=== PATIENT | female | born 1995 | race American Indian/Alaskan Native ===

== ENCOUNTER 2017-03-18 18:02 | Emergency (ER) | payer MEDICAID ==
[2017-03-18 18:49] VITALS: BP 114/51
[2017-03-18 19:23] LABS: Bacteria,Urine 1+ /HPF (Negative); Bilirubin,Urine NEG (Negative); Blood,Urine NEG (Negative); Ketones,Urine 80 mg/dL (Negative); Leukocyte Esterase,Urine TR (Negative); Mucus,Urine 3+ /HPF; Nitrite,Urine NEG (Negative); Protein,Urine <15 mg/dL mg/dL (Negative)
--- NOTE | 2017-03-18 19:50 | Emergency Department Report ---
ED Female HPI - General Chief complaint: Back Pain/Injury Stated complaint: BACK PAIN Time Seen by Provider: 03/18/17 19:39 Source: patient Mode of arrival: Ambulatory Limitations: No Limitations - History of Present Illness Initial comments: 21 YO FEMALE 15 WITH HER FIRST CHILD AND WORKS AT [employer] HAS HAD LOWER BACK PAIN SINCE OWN WEEK. SHE DENIES TRAUMA, HEMATURIA, DYSURIA,VAGINAL BLEEDING, OR ABNORMAL VAGINAL DISCHARGE. SHE HAS TAKEN TYLENOL FOR HER PAIN BUT PAIN RETURNS BECAUSE OF STANDING UP AT WORK -: Gradual Severity scale (0 -10): 4 Quality: sharp, aching Consistency: intermittent Worsens with: movement Associated Symptoms: denies other symptoms. denies: vaginal discharge, vaginal bleeding, abdominal pain, nausea/vomiting, fever/chills, dysuria, hematuria - Related Data : 1 Para: 0 A: 0 Allergies Allergy/AdvReac Type Severity Reaction Status Date / Time No Known Allergies Allergy Unverified 03/18/17 18:41 ED Review of Systems ROS: Stated complaint: PELVIC/BACK PAIN Other details as noted in HPI Constitutional: denies: chills, fever Eyes: denies: eye pain, eye discharge, vision change ENT: denies: ear pain, throat pain Respiratory: denies: cough, shortness of breath, wheezing Cardiovascular: denies: chest pain, palpitations Endocrine: no symptoms reported Gastrointestinal: denies: abdominal pain, nausea, diarrhea Genitourinary: denies: urgency, dysuria, discharge Musculoskeletal: denies: back pain, joint swelling, arthralgia Skin: denies: rash, lesions Neurological: denies: headache, weakness, paresthesias Psychiatric: denies: anxiety, depression Hematological/Lymphatic: denies: easy bleeding, easy bruising ED Past Medical Hx - Past Medical History Previous Medical History?: No - Surgical History Past Surgical History?: No - Family History Family history: diabetes, hypertension - Social History Smoking Status: Never Smoker Substance Use Type: None ED Physical Exam - General Limitations: No Limitations General appearance: alert, in no apparent distress - Head Head exam: Present: atraumatic, normocephalic - Eye Eye exam: Present: normal appearance - ENT ENT exam: Present: mucous membranes moist - Neck Neck exam: Present: normal inspection - Respiratory Respiratory exam: Present: normal lung sounds bilaterally. Absent: respiratory distress - Cardiovascular Cardiovascular Exam: Present: regular rate, normal rhythm. Absent: systolic murmur, diastolic murmur, rubs, gallop - GI/Abdominal GI/Abdominal exam: Present: soft, normal bowel sounds - Extremities Exam Extremities exam: Present: normal inspection - Back Exam Back exam: Present: normal inspection, full ROM. Absent: tenderness - Neurological Exam Neurological exam: Present: alert, oriented X3 - Psychiatric Psychiatric exam: Present: normal affect, normal mood - Skin Skin exam: Present: warm, dry, intact, normal color. Absent: rash ED Course Vital Signs 03/18/17 18:41 Temperature 98.6 F Pulse Rate 57 L Respiratory 18 Rate Blood Pressure 114/51 O2 Sat by Pulse 100 Oximetry Critical care attestation.: If time is entered above; I have spent that time in minutes in the direct care of this critically ill patient, excluding procedure time. ED Disposition Clinical Impression: Lower back pain Qualifiers: Chronicity: acute Back pain laterality: bilateral Sciatica presence: without sciatica Qualified Code(s): M54.5 - Low back pain Disposition: - TO HOME OR SELFCARE Is pt being admited?: No Does the pt Need Aspirin: No Condition: Stable Instructions: Low Back Strain (ED) Forms: Work/School Release Form(ED)
== END 2017-03-18 20:26 | disposition home or self-care (01) ==
LOC: ED 18:02
DX: O26.891 Other specified pregnancy related conditions, first trimester (principal); M54.5 Low back pain; Z3A.13 13 weeks gestation of pregnancy
CPT/HCPCS: 81001; 99283

== ENCOUNTER 2017-07-25 15:42 | Outpatient (CLI) | payer MEDICAID ==
[2017-07-25 15:57] VITALS: BP 121/71
[2017-07-25] MEDS ORDERED: LACTATED RINGERS 500 ML IV ONE (15:58)
[2017-07-25 16:53] LABS: Amorphous Crystals,Urine 1+; Bacteria,Urine 1+ /HPF (Negative); Bilirubin,Urine NEG (Negative); Blood,Urine NEG (Negative); Color,Urine Yellow (Yellow); Mucus,Urine FEW /HPF; Nitrite,Urine NEG (Negative); Protein,Urine <15 mg/dL mg/dL (Negative)
[2017-07-25] MEDS ORDERED: CELESTONE SOLUSPAN IM ONE (19:42)
== END 2017-07-25 19:25 | disposition home or self-care (01) ==
LOC: TRG 15:42
PROVIDERS: ATTEND Obstetrics & Gynecology
DX: O47.03 False labor before 37 completed weeks of gestation, third trimester (principal); Z3A.31 31 weeks gestation of pregnancy
CPT/HCPCS: 36415; 59025; 81001; 82731; 87591; 96372; J0702

== ENCOUNTER 2017-07-26 18:47 | Outpatient (CLI) | payer MEDICAID ==
[2017-07-26] MEDS ORDERED: LACTATED RINGERS 500 ML IV ONE (18:57)
[2017-07-26] MEDS ORDERED: CELESTONE SOLUSPAN IM ONE (19:00)
== END 2017-07-26 19:15 | disposition home or self-care (01) ==
LOC: TRG 18:47
PROVIDERS: ATTEND Obstetrics & Gynecology
DX: O47.03 False labor before 37 completed weeks of gestation, third trimester (principal); Z3A.31 31 weeks gestation of pregnancy
CPT/HCPCS: 96372; J0702

== ENCOUNTER 2017-08-04 20:48 | Outpatient (CLI) | payer MEDICAID ==
[2017-08-04 21:19] VITALS: BP 116/69
[2017-08-04] MEDS ORDERED: LACTATED RINGERS 500 ML IV ONE (22:00)
--- NOTE | 2017-08-04 22:18 | Ultrasound Report ---
FINAL REPORT EXAM: US OB LIMITED HISTORY: ILYA (Amniotic Fluid Index) COMPARISON: None available. TECHNIQUE: Several real-time grayscale and color Doppler images were obtained. FINDINGS: Limited exam performed for evaluation of ILYA. ILYA within normal limits measuring 8.5 centimeters. Single live IUP demonstrated. heart rate 154 beats per minute. The cervix is visualized. position vertex. IMPRESSION: Normal ILYA 8.5 centimeters.
== END 2017-08-04 22:05 | disposition home or self-care (01) ==
LOC: TRG 20:48
PROVIDERS: ATTEND Obstetrics & Gynecology
DX: O47.03 False labor before 37 completed weeks of gestation, third trimester (principal); Z3A.32 32 weeks gestation of pregnancy
CPT/HCPCS: 59025; 76815

== ENCOUNTER 2019-02-02 21:45 | Emergency (ER) | payer MEDICAID ==
[2019-02-02] MEDS ORDERED: TYLENOL PO ONE (22:14)
[2019-02-02 22:50] LABS: Bilirubin,Urine NEG (Negative); Blood,Urine NEG (Negative); Color,Urine Amber (Yellow); Mucus,Urine 3+ /HPF
[2019-02-02] MEDS ORDERED: ROCEPHIN/NS 1 GM/50 ML 1 GM/50 ML BAG IV ONE (23:09)
[2019-02-02 23:30] LABS: Basophils # (Auto) 0.2 K/mm3 (0.0-0.1); Basophils % (Auto) 1.2 % (0.0-1.8); Eosinophils % (Auto) 0.1 % (0.0-4.3); Hematocrit 35.6 % (30.3-42.9); Hemoglobin 12.3 gm/dl (10.1-14.3); Lymphocytes # (Auto) 1.4 K/mm3 (1.2-5.4); Lymphocytes % (Auto) 11.1 % (13.4-35.0); Mean Corpuscular HGB Conc 34 % (30-34); Mean Corpuscular Volume 87 fl (79-97); Monocytes # (Auto) 1.2 K/mm3 (0.0-0.8); Monocytes % (Auto) 9.2 % (0.0-7.3); Platelet Count 262 K/mm3 (140-440); Red Blood Count 4.09 M/mm3 (3.65-5.03)
[2019-02-02 23:54] LABS: Alanine Aminotransferase 10 units/L (7-56); Albumin 3.5 g/dL (3.9-5); BUN/Creatinine Ratio 15; Blood Urea Nitrogen 9 mg/dL (7-17); Calcium 9.2 mg/dL (8.4-10.2); Hemolysis Index 37
--- NOTE | 2019-02-03 00:32 | Ultrasound Report ---
ULTRASOUND OBSTETRIC INDICATION / CLINICAL INFORMATION: pelvic pain. TECHNIQUE: Transabdominal. COMPARISON: None available. FINDINGS: GESTATIONAL SAC: Well-defined oval shape and intrauterine in location. YOLK SAC: No significant abnormality. EMBRYO/FETUS: No significant abnormality. - Elsie-Rump Length = 0.6 cm = 6 weeks, 3 day(s). - Heart Rate, beats per minute (if present) = 144 ADNEXA: No significant abnormality. FREE FLUID: None. ADDITIONAL FINDINGS: None. IMPRESSION: 1. Single, living intrauterine with estimated sonographic age of 6 weeks, 3 day(s). Signer Name: Juan Singh MD Signed: 02/03/2019 12:27 AM Workstation Name: [id number]
--- NOTE | 2019-02-03 01:52 | Emergency Department Report ---
ED Female HPI - General Chief complaint: Urogenital-Female Stated complaint: ABD PAIN Source: patient Mode of arrival: Ambulatory Limitations: No Limitations - History of Present Illness Initial comments: Patient is a A0 and 22-year-old [place] female was approximately 7 weeks gestation and presents to the ED with contusion of acute onset persistent suprapubic pain, fever and chills and sore throat and dysphagia for the last 2 days. Patient denies diarrhea, nausea, vomiting, chest pain, shortness of breath, cough, dizziness, vaginal bleeding, no discharge, dysuria or nasal and sinus congestion and back pain. MD Complaint: pelvic pain, other (sore throat, fever and chills, diffuse body aches and pains) -: Sudden, days(s) (2) Location: suprapubic, other (throat) Radiation: non-radiating Severity: severe Severity scale (0 -10): 7 Quality: cramping, sharp, aching Consistency: constant Improves with: none Worsens with: none Are you Now?: Yes (7 weeks gestation) Associated Symptoms: denies other symptoms, abdominal pain, fever/chills, headaches, loss of appetite. denies: vaginal discharge, vaginal bleeding, nausea/vomiting, dysuria, hematuria, rash, seizure, shortness of breath, syncope, weakness - Related Data Sexually active: Yes : 2 Para: 1 A: 0 Previous Rx's Medication Instructions Recorded Last Taken Type Acetaminophen [Tylenol] 500 mg PO Q6HR PRN #24 tablet 02/03/19 Unknown Rx Promethazine [Phenergan] 25 mg PO Q6HR PRN #24 tab 02/03/19 Unknown Rx cephALEXin [Keflex] 500 mg PO Q6HR #40 capsule 02/03/19 Unknown Rx Allergies Allergy/AdvReac Type Severity Reaction Status Date / Time No Known Allergies Allergy Verified 07/26/17 18:52 ED Review of Systems ROS: Stated complaint: ABD PAIN Other details as noted in HPI Constitutional: chills, fever, malaise Eyes: denies: eye pain, eye discharge, vision change ENT: throat pain, congestion. denies: ear pain Respiratory: denies: cough, shortness of breath, wheezing Cardiovascular: denies: chest pain, palpitations Endocrine: no symptoms reported Gastrointestinal: abdominal pain (pelvic pain). denies: nausea, vomiting, diarrhea, hematemesis, melena, hematochezia Genitourinary: denies: urgency, dysuria, discharge Musculoskeletal: arthralgia, myalgia. denies: back pain, joint swelling Skin: denies: rash, lesions Neurological: headache. denies: weakness, paresthesias Psychiatric: denies: anxiety, depression Hematological/Lymphatic: denies: easy bleeding, easy bruising ED Past Medical Hx - Past Medical History Previous Medical History?: Yes Hx Hypertension: No Hx Diabetes: No Hx Deep Vein Thrombosis: No Hx Renal Disease: No Hx Sickle Cell Disease: No Hx Seizures: No Hx Asthma: No Hx HIV: No - Surgical History Past Surgical History?: Yes - Social History Smoking Status: Never Smoker Substance Use Type: None - Medications Home Medications: Home Medications Medication Instructions Recorded Confirmed Last Taken Type Acetaminophen [Tylenol] 500 mg PO Q6HR PRN #24 tablet 02/03/19 Unknown Rx Promethazine [Phenergan] 25 mg PO Q6HR PRN #24 tab 02/03/19 Unknown Rx cephALEXin [Keflex] 500 mg PO Q6HR #40 capsule 02/03/19 Unknown Rx ED Physical Exam - General Limitations: No Limitations General appearance: alert, in no apparent distress - Head Head exam: Present: atraumatic, normocephalic, normal inspection - Eye Eye exam: Present: normal appearance, PERRL, EOMI. Absent: scleral icterus, conjunctival injection, nystagmus - ENT ENT exam: Present: normal exam, mucous membranes moist, TM's normal bilaterally, normal external ear exam, other (erythematous oropharynx with mildly swollen tonsils with exudates) - Neck Neck exam: Present: normal inspection, full ROM, lymphadenopathy. Absent: tenderness, meningismus, thyromegaly - Respiratory Respiratory exam: Present: normal lung sounds bilaterally. Absent: respiratory distress, wheezes, rales, rhonchi, chest wall tenderness, accessory muscle use, decreased breath sounds, prolonged expiratory - Cardiovascular Cardiovascular Exam: Present: normal rhythm, tachycardia, normal heart sounds. Absent: systolic murmur, diastolic murmur, rubs, gallop - GI/Abdominal GI/Abdominal exam: Present: soft, tenderness (Mild tender suprapubic area), normal bowel sounds. Absent: guarding, rebound, hyperactive bowel sounds, mass, bruit - Rectal Rectal exam: Present: deferred - Extremities Exam Extremities exam: Present: normal inspection, full ROM, normal capillary refill - Back Exam Back exam: Present: normal inspection, full ROM. Absent: tenderness, CVA tenderness (R), CVA tenderness (L), muscle spasm, paraspinal tenderness, vertebral tenderness - Neurological Exam Neurological exam: Present: alert, oriented X3, CN II-XII intact, normal gait, reflexes normal - Psychiatric Psychiatric exam: Present: normal affect, normal mood - Skin Skin exam: Present: warm, dry, intact, normal color. Absent: rash ED Course Vital Signs 02/02/19 02/03/19 21:56 01:59 Temperature 101.7 F H 98.4 F Pulse Rate 115 H 82 Respiratory 18 16 Rate Blood Pressure 116/66 Blood Pressure 111/62 [Right] O2 Sat by Pulse 100 100 Oximetry - Reevaluation(s) Reevaluation #1: 02/03/19 01:54 This is a 23-year-old female who presented to the ED with fever, sore throat and suprapubic pain with diffuse body aches last 2 days. Patient is approximately 7 weeks gestation. In the ED, patient is febrile, tachycardic but is in no acute distress. Labs were drawn and patient is fever with Tylenol. Lab test results were reviewed and are significant for acute leukocytosis of 12,900, and urinary tract infection on UA. Rapid strep test is negative. ultrasound shows a single live IUP approximately 6 weeks and 3 days with a heart rate of 1 44 bpm. No subchorionic bleed seen. On reevaluation, patient's fever and tachycardia resolved on treatment. Patient was discharged home on medications and advised to follow-up with her primary care physician or will be joint physician in 5-7 days for reevaluation, or return to the ED immediately if symptoms get worse. ED Medical Decision Making - Lab Data Result diagrams: 02/02/19 23:17 02/02/19 23:17 - Radiology Data Radiology results: report reviewed, image reviewed Ultrasound shows a single live IUP with a FHR of 144 bpm and approximately 6 weeks and 3 days. - Medical Decision Making This is a 23-year-old female who presented to the ED with fever, sore throat and suprapubic pain with diffuse body aches last 2 days. Patient is approximately 7 weeks gestation. In the ED, patient is febrile, tachycardic but is in no acute distress. Labs were drawn and patient is fever with Tylenol. Lab test results were reviewed and are significant for acute leukocytosis of 12,900, and urinary tract infection on UA. Rapid strep test is negative. Patient also received Rocephin 1 g IV 1. ultrasound shows a single live IUP approxi mately 6 weeks and 3 days with a heart rate of 1 44 bpm. No subchorionic bleed seen. On reevaluation, patient's fever and tachycardia resolved on treatment. Patient was discharged home on medications and advised to follow-up with her primary care physician or will be joint physician in 5-7 days for reevaluation, or return to the ED immediately if symptoms get worse. - Differential Diagnosis acute strep pharyngitis; acute UTI; Acute URI; Critical care attestation.: If time is entered above; I have spent that time in minutes in the direct care of this critically ill patient, excluding procedure time. ED Disposition Clinical Impression: Acute urinary tract infection, Fever and chills, Pelvic pain affecting in first trimester, antepartum Acute pharyngitis Qualifiers: Pharyngitis/tonsillitis etiology: unspecified etiology Qualified Code(s): J02.9 - Acute pharyngitis, unspecified Disposition: DC-01 TO HOME OR SELFCARE Is pt being admited?: No Does the pt Need Aspirin: No Condition: Stable Instructions: Urinary Tract Infection in Women (ED), Pharyngitis (ED), Fever in Adults (ED) Additional Instructions: Take medication with food, drink plenty of fluids and follow-up with the ASSOCIATE [employer] physician in 5-7 days for reevaluation. Return to the ED immediately if symptoms get worse. Prescriptions: Acetaminophen [Tylenol] 500 mg PO Q6HR PRN #24 tablet PRN Reason: Pain , Severe (7-10) cephALEXin [Keflex] 500 mg PO Q6HR #40 capsule Promethazine [Phenergan] 25 mg PO Q6HR PRN #24 tab PRN Reason: Nausea Referrals: PRIMARY CARE, [Primary Care Provider] - 3-5 Days Time of Disposition: 01:49 Print Language: [place] ISLAND[place]
[2019-02-03 02:00] VITALS: BP 111/62
== END 2019-02-03 02:17 | disposition home or self-care (01) ==
LOC: ED 21:45
DX: O23.41 Unspecified infection of urinary tract in pregnancy, first trimester (principal); O99.511 Diseases of the respiratory system complicating pregnancy, first trimester; J02.9 Acute pharyngitis, unspecified; Z3A.01 Less than 8 weeks gestation of pregnancy; Z79.899 Other long term (current) drug therapy
CPT/HCPCS: 36415; 76801; 80053; 81001; 84703; 85025; 87086; 87116; 87430; 96365; 99284; J0696

== ENCOUNTER 2019-07-08 16:29 | Outpatient (CLI) | payer MEDICAID ==
[2019-07-08] MEDS ORDERED: LACTATED RINGERS 1,000 ML IV SCH (17:00)
[2019-07-08 17:01] VITALS: BP 110/64
[2019-07-08 17:10] LABS: Bacteria,Urine 4+ /HPF (Negative); Bilirubin,Urine NEG (Negative); Blood,Urine NEG (Negative); Color,Urine Yellow (Yellow); Hyaline Casts,Urine 10 /LPF; Mucus,Urine 2+ /HPF; Sperm,Urine FEW /HPF (NP)
== END 2019-07-08 18:52 | disposition home or self-care (01) ==
LOC: TRG 16:29
PROVIDERS: ATTEND Obstetrics & Gynecology
DX: O26.893 Other specified pregnancy related conditions, third trimester (principal); R25.2 Cramp and spasm; R10.2 Pelvic and perineal pain; M54.9 Dorsalgia, unspecified; O47.03 False labor before 37 completed weeks of gestation, third trimester; Z3A.29 29 weeks gestation of pregnancy
CPT/HCPCS: 81001; 87086; 96360; 96361; J7120

== ENCOUNTER 2019-08-04 11:57 | Outpatient (CLI) | payer MEDICAID ==
[2019-08-04 12:39] VITALS: BP 107/63
[2019-08-04] MEDS ORDERED: LACTATED RINGERS 1,000 ML IV SCH (13:00)
[2019-08-04 13:18] LABS: Bacteria,Urine 1+ /HPF (Negative); Bilirubin,Urine NEG (Negative); Blood,Urine NEG (Negative); Color,Urine Yellow (Yellow); Hyaline Casts,Urine 1 /LPF; Mucus,Urine FEW /HPF; Protein,Urine <15 mg/dL mg/dL (Negative)
== END 2019-08-04 14:14 | disposition home or self-care (01) ==
LOC: TRG 11:57
PROVIDERS: ATTEND Obstetrics & Gynecology
DX: O26.893 Other specified pregnancy related conditions, third trimester (principal); R19.7 Diarrhea, unspecified; R10.9 Unspecified abdominal pain; Z3A.33 33 weeks gestation of pregnancy
CPT/HCPCS: 81001

== ENCOUNTER 2020-03-04 20:28 | Emergency (ER) | payer MEDICAID ==
[2020-03-04 20:38] VITALS: BP 121/59
[2020-03-04 20:49] LABS: Basophils # (Auto) 0.1 K/mm3 (0.0-0.1); Basophils % (Auto) 0.5 % (0.0-1.8); Eosinophils # (Auto) 0.2 K/mm3 (0.0-0.4); Eosinophils % (Auto) 1.8 % (0.0-4.3); Hematocrit 33.9 % (30.3-42.9); Hemoglobin 11.6 gm/dl (10.1-14.3); Lymphocytes # (Auto) 3.1 K/mm3 (1.2-5.4); Lymphocytes % (Auto) 24.8 % (13.4-35.0); Mean Corpuscular HGB Conc 34 % (30-34); Mean Corpuscular Volume 91 fl (79-97); Monocytes # (Auto) 0.6 K/mm3 (0.0-0.8); Monocytes % (Auto) 5.1 % (0.0-7.3); Platelet Count 325 K/mm3 (140-440); Red Blood Count 3.74 M/mm3 (3.65-5.03)
[2020-03-04 22:01] LABS: Bacteria,Urine 1+ /HPF (Negative); Bilirubin,Urine NEG (Negative); Blood,Urine NEG (Negative); Color,Urine Yellow (Yellow); Mucus,Urine 3+ /HPF
--- NOTE | 2020-03-04 22:56 | Ultrasound Report ---
US OB <= 14 wk fetus add gest INDICATION: abdominal pain. TECHNIQUE: Transabdominal ultrasound performed. COMPARISON: None available. FINDINGS: No intrauterine is identified. The uterus appears normal with endometrial thickness of 7 mm . Adnexa appear within normal limits. There is no free fluid in the pelvis. IMPRESSION: 1. No intrauterine identified. Signer Name: Bolivar Robbins MD Signed: 03/04/2020 10:51 PM Workstation Name: [id number]
[2020-03-05] MEDS ORDERED: cephALEXin 500 MG CAP PO ONE (00:36)
[2020-03-05] MEDS ORDERED: ACETAMINOPHEN 500 MG TAB PO ONE (00:36)
--- NOTE | 2020-03-05 00:52 | Emergency Department Report ---
ED HPI - General Chief complaint: Vaginal Bleeding Stated complaint: PREG IN PAIN LEAKING FLUID Time Seen by Provider: 03/05/20 00:40 Source: patient Mode of arrival: Ambulatory Limitations: No Limitations - History of Present Illness Initial comments: Patient is a 24-year-old female that presents emergency room with complaints of lower abdominal cramping and loss of fluid per vagina. Patient states that 2 days ago she was having some vaginal irritation and she put to Monistat suppositories and to her vagina. Patient states then yesterday she went to urgent care and had a positive urine hCG test. Patient states she developed abdominal pain and leaking per vagina yesterday. Patient states her symptoms are worsening. Patient states she has not seen an IRRIGATOR. Patient states she is 5 months. Patient states she is a G3, P2, A0. Patient denies fever and chills. Patient denies chest pain shortness of breath. Patient states her abdominal pain is a 5 out of 10. Patient states is nonradiating. Patient states the fluid per vagina is clear. Patient denies blood per vagina. Patient denies discharge per vagina. Patient states her last menstrual period was January 29. Patient denies recent travel. Patient denies recent international travel. Patient denies exposure to the novel coronavirus. Patient denies sick contacts. Patient denies fever and chills. Patient denies cough. Patient denies diarrhea. Patient denies coming in contact with anybody with symptoms of the novel coronavirus. MD Complaint: abdominal pain -: Sudden Location: abdomen Severity: moderate Severity scale (0 -10): 5 Quality: cramping Consistency: constant Improves with: rest Worsens with: movement Associated symptoms: abdominal pain Vaginal bleeding: none :: Yes OB History - Current : no complications OB History - Previous Pregnancies: no complications Pre-farzaneh care: none - Related Data Home Medications Medication Instructions Recorded Confirmed Last Taken No Known Home Medications [No 08/30/19 08/30/19 Unknown Reported Home Medications] Allergies Allergy/AdvReac Type Severity Reaction Status Date / Time No Known Allergies Allergy Verified 07/26/17 18:52 ED Review of Systems ROS: Stated complaint: PREG IN PAIN LEAKING FLUID Other details as noted in HPI Constitutional: denies: chills, fever Eyes: denies: eye pain, eye discharge, vision change ENT: denies: ear pain, throat pain Respiratory: denies: cough, shortness of breath, wheezing Cardiovascular: denies: chest pain, palpitations Endocrine: no symptoms reported Gastrointestinal: abdominal pain. denies: nausea, diarrhea Genitourinary: denies: urgency, dysuria, discharge Musculoskeletal: denies: back pain, joint swelling, arthralgia Skin: denies: rash, lesions Neurological: denies: headache, weakness, paresthesias Psychiatric: denies: anxiety, depression Hematological/Lymphatic: denies: easy bleeding, easy bruising ED Past Medical Hx - Past Medical History Previous Medical History?: No Hx Hypertension: No Hx Congestive Heart Failure: No Hx Diabetes: No Hx Deep Vein Thrombosis: No Hx Renal Disease: No Hx Sickle Cell Disease: No Hx Seizures: No Hx Asthma: No Hx COPD: No Hx HIV: No - Surgical History Past Surgical History?: No - Family History Family history: no significant - Social History Smoking Status: Never Smoker Substance Use Type: None - Medications Home Medications: Home Medications Medication Instructions Recorded Confirmed Last Taken Type No Known Home Medications [No 08/30/19 08/30/19 Unknown History Reported Home Medications] ED Physical Exam - General Limitations: No Limitations General appearance: alert, in no apparent distress - Head Head exam: Present: atraumatic, normocephalic - Eye Eye exam: Present: normal appearance - ENT ENT exam: Present: mucous membranes moist - Neck Neck exam: Present: normal inspection - Respiratory Respiratory exam: Present: normal lung sounds bilaterally. Absent: respiratory distress, wheezes, rales - Cardiovascular Cardiovascular Exam: Present: regular rate, normal rhythm. Absent: systolic murmur, diastolic murmur, rubs, gallop - GI/Abdominal GI/Abdominal exam: Present: soft, normal bowel sounds. Absent: distended, tenderness, guarding - Extremities Exam Extremities exam: Present: normal inspection - Back Exam Back exam: Present: normal inspection - Neurological Exam Neurological exam: Present: alert, oriented X3 - Psychiatric Psychiatric exam: Present: normal affect, normal mood - Skin Skin exam: Present: warm, dry, intact, normal color. Absent: rash ED Course Vital Signs 03/04/20 20:34 Temperature 99.2 F Pulse Rate 84 Respiratory 20 Rate Blood Pressure 121/59 O2 Sat by Pulse 98 Oximetry - Reevaluation(s) Reevaluation #1: Initial evaluation done. I discussed labs with patient. Patient has a UTI. Patient states she had a transabdominal ultrasound. I will order a trans- vaginal ultrasound. Patient agrees with plan of care. 03/05/20 00:49 Reevaluation #2: I returned to the room to check on the patient and the patient is not there. I discussed with the nurse and the nurse states the patient eloped. 03/05/20 01:35 ED Medical Decision Making - Lab Data Result diagrams: 03/04/20 20:40 - Radiology Data Radiology results: report reviewed US OB <= 14 wk fetus add gest INDICATION: abdominal pain. TECHNIQUE: Transabdominal ultrasound performed. COMPARISON: None available. FINDINGS: No intrauterine is identified. The uterus appears normal with endometrial thickness of 7 mm. Adnexa appear within normal limits. There is no free fluid in the pelvis. IMPRESSION: 1. No intrauterine identified. - Medical Decision Making Patient is a 24-year-old female who presents emergency room with complaints of abdominal cramps and loss of fluid per vagina. Patient's loss of fluid started after a Monistat vaginal suppositories placed. Patient confirmed her at an urgent care with a urine test. Patient had labs and ultrasound. Patient's labs are unremarkable except for UTI. Patient initial ultrasound would a transabdominal ultrasound. After initial evaluation, I ordered a transvaginal ultrasound, however the patient eloped from the ER prior to repeat ultrasound could be done or a final disposition could be done. - Differential Diagnosis Loss of fluid per vagina, abdominal cramps, , miscarriage Critical care attestation.: If time is entered above; I have spent that time in minutes in the direct care of this critically ill patient, excluding procedure time. ED Disposition Clinical Impression: Abdominal cramps, Fluid loss, Threatened miscarriage Qualifiers: Weeks of gestation: unspecified Qualified Code(s): Z34.90 - Encounter for supervision of normal , unspecified, unspecified trimester UTI (urinary tract infection) Qualifiers: Urinary tract infection type: acute cystitis Hematuria presence: with hematuria Qualified Code(s): N30.01 - Acute cystitis with hematuria Disposition: Z-07 ELOPED Is pt being admited?: No Does the pt Need Aspirin: No Condition: Stable Time of Disposition: 01:54
== END 2020-03-05 01:10 | disposition left against medical advice (07) ==
LOC: ED 20:28
DX: O20.0 Threatened abortion (principal); O23.41 Unspecified infection of urinary tract in pregnancy, first trimester; O26.891 Other specified pregnancy related conditions, first trimester; E86.9 Volume depletion, unspecified; R10.30 Lower abdominal pain, unspecified; Z3A.00 Weeks of gestation of pregnancy not specified
CPT/HCPCS: 36415; 76801; 76802; 81001; 84702; 85025; 86900; 86901; 87086

== ENCOUNTER 2021-03-13 21:09 | Outpatient (CLI) | payer MEDICAID ==
[2021-03-13 21:41] VITALS: BP 117/74
[2021-03-13] MEDS ORDERED: LACTATED RINGERS 1,000 ML IV ONE (21:49)
== END 2021-03-13 23:30 | disposition home or self-care (01) ==
LOC: TRG 21:09 → APU 21:11 → TRG 23:30
PROVIDERS: ATTEND Obstetrics & Gynecology
DX: Z34.93 Encounter for supervision of normal pregnancy, unspecified, third trimester (principal); Z3A.36 36 weeks gestation of pregnancy
CPT/HCPCS: 36415; 59025; 84112